=== PATIENT | female | born 1990 | race Caucasian/White ===

== ENCOUNTER 2016-04-07 16:26 | Emergency (ER) | payer OTHER ==
[2016-04-07 16:46] VITALS: BP 117/72
--- NOTE | 2016-04-07 17:04 | ERNOTE ---
Medical Problem HPI - Narrative Date of Service: 04/07/16 - General Chief Complaint: General Assessment Time Seen by Provider: 04/07/16 16:50 Source: patient, RN notes reviewed, old records Exam Limitations: clinical condition - Immun/Allergies/Home Medications Immunizations: IMMUNIZATION HX Immunizations Up to Date Yes History of Influenza Vaccine No Hx Pneumococcal Vaccination No Allergies/Adverse Reactions: Allergies No Known Allergies Allergy (Verified 03/01/16 06:28) Home Medications: HOME MEDICATIONS Ibuprofen [Motrin] 200 mg PO PRN PRN 01/05/16 [Last Taken Unknown] Lamotrigine [Lamictal] 100 mg PO DAILY 01/05/16 [Last Taken Unknown] Sertraline HCl [Zoloft] 100 mg PO DAILY 01/05/16 [Last Taken Unknown] ARIPiprazole [Abilify] 5 mg PO DAILY 03/01/16 [Last Taken Unknown] Amox Tr/Potassium Clavulanate [Augmentin 875-125 Tablet] 875 mg PO Q12H #20 tab 04/07/16 [Last Taken Unknown] predniSONE [Prednisone] 2 tab PO DAILY #14 tab 04/07/16 [Last Taken Unknown] - Pain Score Pain Score #1 Pain Score: 4 - headache - History of Present History Narrative: 25 year old female with presents to er with c/o mouth sore for 2 days. also c/ o nasal congestion / drainage for 2 weeks with sneezing, cough and headache. no cp, no dyspnea. Timing: constant, getting worse Severity: mild, moderate Review of Systems - Review of Systems Constitutional: Present: malaise EYE: Present: no symptoms reported ENT: Present: nose congestion, nasal drainage Respiratory: Present: cough Cardiology: Present: no symptoms reported Gastrointestinal/Abdominal: Present: no symptoms reported Genitourinary: Present: no symptoms reported Musculoskeletal: Present: no symptoms reported Skin: Present: no symptoms reported Neurological: Present: headache Endocrine: Present: no symptoms reported Hematologic/Lymphatic: Present: no symptoms reported Psych: Present: no symptoms reported All Other Systems: All systems neg except as marked - Patient's Past Medical History Patient History - Medical: Anxiety, Depression, Headache, Seizures Patient History - Cardiac/Respiratory: No pertinent hx Patient History - Cancer: No Hx of Cancer Patient History - Surgical Procedures: Other Patient History - Other: None LMP (females 10-50): this week - Social History Living Situations: significant other Abuse History: No History of abuse Psych History: Hx of Anxiety, Hx of Depression Smoking Status: Current every day smoker Have you smoked in the past 12 months: Yes Alcohol Use: rarely Drug Use: none, marijuana - Immunizations Immunizations Up to Date: Yes Hx Pneumococcal Vaccination: No History of Influenza Vaccine: No Physical Exam - Physical Exam General Appearance: Present: wd/wn, alert, no apparent distress Eye Exam: Normal inspection: bilateral Ears, Nose, Throat: Present: nasal congestion, sinus pain/drainage, normal pharynx Neck: Present: lymphadenopathy (R), lymphadenopathy (L) Respiratory: Present: no respiratory distress, no accessory muscle use, rhonchi Cardiovascular/Chest: Present: regular rate, rhythm, normal peripheral pulses Gastrointestinal/Abdominal: Present: nontender, nondistended, soft Rectal Exam: Present: deferred Back Exam: Present: normal inspection, normal range of motion Extremity Exam: Present: normal inspection, non-tender, no edema, normal range of motion Neurological Exam: Present: alert, oriented, normal mood/affect, no motor/ sensory deficits Skin Exam: Present: normal color, warm/dry ED Progress - Vital Signs Vital Signs: Vital Signs 04/07/16 16:38 Temperature 35.9 C L Pulse Rate 100 Respiratory 14 Rate Blood Pressure 117/72 O2 Sat by Pulse 97 Oximetry - Progress/Reassessment Chief Complaint: General Assessment Progress:: Re-examined Departure - Departure Clinical Impression: Bronchitis, Canker sores oral Sinusitis Qualifiers: Sinusitis location: pansinusitis Chronicity: acute Recurrence: not specified as recurrent Qualified Code(s): J01.40 - Acute pansinusitis, unspecified Disposition: Home self-care Condition: Good Instructions: Canker Sores, Acute Bronchitis, [id number] Additional Instructions: push fluids. use otc oragel to sore in mouth. may also swish and spit with warm salt water to help with pain from sore in mouth. Prescriptions: Amox Tr/Potassium Clavulanate [Augmentin 875-125 Tablet] 875 mg PO Q12H #20 tab predniSONE [Prednisone] 2 tab PO DAILY #14 tab
== END 2016-04-07 17:05 | disposition home or self-care (01) ==
LOC: ER 16:26
DX: J20.9 Acute bronchitis, unspecified (principal); K12.0 Recurrent oral aphthae; J01.40 Acute pansinusitis, unspecified; F17.210 Nicotine dependence, cigarettes, uncomplicated

== ENCOUNTER 2016-11-21 15:13 | Emergency (ER) | payer OTHER ==
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
[2016-11-21 17:13] VITALS: BP 111/72
== END 2016-11-21 17:13 | disposition home or self-care (01) ==
LOC: ER 15:13
DX: M25.511 Pain in right shoulder (principal); F41.8 Other specified anxiety disorders; Z87.820 Personal history of traumatic brain injury; F17.200 Nicotine dependence, unspecified, uncomplicated